=== PATIENT | female | born 1975 | race Caucasian/White ===

== ENCOUNTER → 2016-09-08 | Outpatient (CLI) | payer BC ==
--- NOTE | 2016-09-08 15:49 | XR ---
EXAMINATION TYPE: XR chest 2V DATE OF EXAM: 09/08/2016 3:44 PM COMPARISON: NONE TECHNIQUE: PA and lateral views submitted. HISTORY: Chest pain FINDINGS: The lungs are clear and there is no pneumothorax, pleural effusion, or focal pneumonia. Calcificati on along the right humerus suspicious for calcific tendinosis hypertrophic change of the spine noted. IMPRESSION: 1. No acute process.
== END | disposition home or self-care (01) ==
LOC: RADXRMAIN 15:26
PROVIDERS: ATTEND Family Medicine
DX: R07.89 Other chest pain (principal)
CPT/HCPCS: 71020

== ENCOUNTER → 2016-09-10 | Outpatient (CLI) | payer BC ==
--- NOTE | 2016-09-13 09:25 | MM ---
Reason for exam: screening (asymptomatic). Last mammogram was performed 1 year and 8 months ago. History: Family history of breast cancer in mother at age 38. Physical Findings: A clinical breast exam by your physician is recommended on an annual basis and results should be correlated with mammographic findings. MG Screening Mammo w CAD Bilateral CC and MLO view(s) were taken. Prior study comparison: January 08, 2015, bilateral MG screening mammo w CAD. October 03, 2012, CAD bilateral diagnostic mammogram. The breast tissue is heterogeneously dense. This may lower the sensitivity of mammography. Finding: There are typically benign round calcifications in the left breast. There is no discrete abnormality. ASSESSMENT: Benign, BI-RAD 2 RECOMMENDATION: Routine screening mammogram of both breasts in 1 year.
== END | disposition home or self-care (01) ==
LOC: RADMAMWWP 12:40
PROVIDERS: ATTEND Family Medicine
DX: Z12.31 Encounter for screening mammogram for malignant neoplasm of breast (principal)

== ENCOUNTER → 2016-11-15 | Outpatient (CLI) | payer BC ==
--- NOTE | 2016-11-15 18:38 | CT ---
EXAMINATION TYPE: CT angio chest DATE OF EXAM: 11/15/2016 4:51 PM COMPARISON: NONE HISTORY: CHEST PAIN AND SOB X5 MONTHS. CT DLP: 532 mGycm Automated exposure control for dose reduction was used. CONTRAST: CTA scan of the thorax is performed with IV Contrast, patient injected with 70 mL of Omnipaque 350, p ulmonary embolism protocol. There are 3-D post processed images.. FINDINGS: The lungs are clear of infiltrate. There is no pleural effusion. There is no sign of a pulmonary mass . There is no pericardial effusion. Thoracic aorta is intact. There is no sign of aneurysm or dissection. There is normal contrast opacif ication of the pulmonary arteries. I see no filling defect. The bony thorax appears intact. IMPRESSION: NORMAL CT ANGIOGRAM OF THE CHEST. NO EVIDENCE OF PULMONARY EMBOLISM.
== END | disposition home or self-care (01) ==
LOC: RADCTMAIN 16:26
PROVIDERS: ATTEND Family Medicine
DX: R06.02 Shortness of breath (principal)
CPT/HCPCS: 71275; Q9967

== ENCOUNTER → 2016-12-03 | Outpatient (CLI) | payer BC ==
--- NOTE | 2016-12-03 16:38 | EST ---
DATE OF SERVICE: 12/03/2016 AGE: 41Y SEX: F HT: 63" WT: 165 lbs. Protocol Giovanny: Other: Stage: Dur. of Exercise: 11 minutes *Heart Rate Blood Pressure *Rest: 72 Rest: 136/53 * *Max. Achieved: 154 Maximum BP: 196/64 85% PMHR: 154 100% PMHR: 181 *METS: 10.1 INDICATIONS: Chest pain. MEDICATIONS: None. Stress data: Pretesting physical examination showed heart rate 72, pressure is 136/53 mmHg. Baseline EKG shows sinus rhythm. The patient exercised on the treadmill according to Giovanny protocol for a total 11 minutes and achieved 10.1 METs. Max heart rate was 154, which is about 85% of maximum predicted heart rate. Maximum blood pressure was 196/64 mmHg. Clinically, the patient developed chest discomfort in response to exercise. The EKG showed about 1 to 2 mm of slowing, ST segment changes. CONCLUSION: 1. Chest discomfort and excellent exercise capacity. 2. The patient developed chest discomfort in response to exercise. 3. EKG changes in response to exercise but it did not meet the criteria for ischemia. 4. If the patient's symptoms are concerning I will consider a stress test with imaging modality or ( ) coronary angiogram.
== END | disposition home or self-care (01) ==
LOC: RADNMMAIN 11:02
PROVIDERS: ATTEND Family Medicine
DX: R07.89 Other chest pain (principal)
CPT/HCPCS: 93017

== ENCOUNTER → 2016-12-17 | Outpatient (CLI) | payer BC ==
--- NOTE | 2016-12-17 12:08 | NM ---
EXAMINATION TYPE: NM stress cardiolite complete DATE OF EXAM: 12/17/2016 COMPARISON: CTA chest November 15, 2016 HISTORY: Chest pain and difficulty in breathing per patient. Abnormal stress test per order TECHNIQUE: After the intravenous administration of 10.14 mCi Tc 99m Sestamibi - Rest images obtained 45 minutes post injection. The patient exercised using a GISEL protocol and 1 minute prior to peak exercise was injected with 27.0 mCi Tc 99m Sestamibi - Stress images obtained 15 minutes post inject ion. FINDINGS: Targeted heart rate was achieved during performance of the study. Review of stress and rest SPECT bijal ges demonstrates no distinct perfusion abnormality. Gated analysis shows normal wall motion with an estimated left ventricular ejection fraction of 80 %. IMPRESSION: No scintigraphic evidence for reversible ischemia
--- NOTE | 2016-12-17 12:52 | EST ---
DATE OF SERVICE: 12/17/2016 AGE: 41Y SEX: F HT: 65 WT: 165 lbs. Protocol Giovanny: Other: Stage: 3 Dur. of Exercise: 11:26 *Heart Rate Blood Pressure *Rest: 55 Rest: 95/66 * *Max. Achieved: 168 Maximum BP: 159/66 85% PMHR: 154 100% PMHR: 181 *METS: INDICATIONS: MEDICATIONS: Patient was exercised for a total period of 11 minutes and 30 seconds. The peak heart rate of 168 was achieved. Maximum blood pressure of 133/67 mm of mercury was noted. Resting EKG shows normal sinus rhythm with normal CO interval and QRS duration and normal ST-T waves. During exercise, J-point depression with upsloping ST segments are noted. The patient did not complain of any chest pain during the test. FINAL IMPRESSION: 1. This exercise test shows equivocal upsloping ST segment changes, which are not definitely diagnostic of ischemia. Patient did not complain of any chest pain during the test. 2. The results of the nuclear study will follow.
== END | disposition home or self-care (01) ==
LOC: RADNMMAIN 09:03
PROVIDERS: ATTEND Family Medicine
DX: R94.39 Abnormal result of other cardiovascular function study (principal)
CPT/HCPCS: 93017; 78452; A9500

== ENCOUNTER → 2017-03-10 | Outpatient (CLI) | payer BC ==
--- NOTE | 2017-03-10 08:35 | US ---
EXAMINATION TYPE: US thyroid st tissue head/neck DATE OF EXAM: 03/10/2017 COMPARISON: NONE CLINICAL HISTORY: R22.1 Neck Swelling. Pt states palpable lump right lateral neck just under mandible x 2 months, pt states this area is tender In area where pt feels palpable there are 2 probable lymph nodes 1)= 1.8 x 0.6 x 1.4 cm, 2)= 1.5 x 0.6 x 1.4 cm At area of palpable abnormality two oval hypoechoic to anechoic lesion are identified and marked by t echnologist. IMPRESSION: As above, if these are prominent lymph nodes they have lost normal fatty hilum suggesting ongoing inf lammation or infection. Would advise imaging follow-up (repeat ultrasound, or contrast-enhanced CT/MR I) if they persist or enlarge.
== END | disposition home or self-care (01) ==
LOC: RADUSWWP 07:40
PROVIDERS: ATTEND Family Medicine
DX: R59.0 Localized enlarged lymph nodes (principal); E07.89 Other specified disorders of thyroid
CPT/HCPCS: 76536

== ENCOUNTER → 2018-01-20 | Outpatient (CLI) | payer BC ==
--- NOTE | 2018-01-20 15:42 | US ---
EXAMINATION TYPE: US thyroid st tissue head/neck DATE OF EXAM: 01/20/2018 COMPARISON: US 03/10/2017, CT 03/21/2017 CLINICAL HISTORY: R22.1 SWELLING MASS LUMP IN NECK. Hypoechoic area visualized at the patient's palpable measuring 1.9 x 0.6 x 1.3 cm. This area previous ly measured 1.8 x 0.6 x 1.4 cm on 03/10/2017. This is ovoid in shape, normal morphologically, and on the transverse images demonstrates a small fatty hilum. Other smaller adjacent lymph nodes are seen. IMPRESSION: No interval growth in comparison to the prior exam of 03/10/2017 on the right cervical ch ain lymph node. Overall this does not meet size criteria for enlargement and appears ovoid in shape, morphologically normal. Correlation with serum laboratory values is recommended to exclude lymphoprol iferative disorder, although sonographically unlikely.
== END | disposition home or self-care (01) ==
LOC: RADUSWWP 14:47
PROVIDERS: ATTEND Otolaryngology
DX: R22.1 Localized swelling, mass and lump, neck (principal)
CPT/HCPCS: 76536

== ENCOUNTER 2018-03-24 05:35 | Day surgery (SDC) | payer BC ==
[2018-03-21 13:05] VITALS: BMI 28.3
--- NOTE | 2018-03-23 08:01 | P.HPOB ---
History of Present Illness H&P Date: 03/23/18 Chief Complaint: Menorrhagia This patient is a pleasant 42 yr female who presents for endometrial ablation due to persistent menorrhagia. Patient has had persistent heavy bleeding after going off the pill. Ultrasound shows a cystic area (2-3mm) in the endometrium, but otherwise normal. Her partner has had a vasectomy and she is requesting ablation for treatment. Review of Systems Genitourinary: Reports as per HPI, Reports menorrhagia Menstruation: Reports as per HPI, Reports period heavy Past Medical History Past Medical History: No Reported History Additional Past Medical History / Comment(s): Menorrhagia History of Any Multi-Drug Resistant Organisms: None Reported Past Surgical History: Orthopedic Surgery Additional Past Surgical History / Comment(s): Jb. Knee scopes Past Anesthesia/Blood Transfusion Reactions: No Reported Reaction Past Psychological History: No Psychological Hx Reported Smoking Status: Never smoker Past Alcohol Use History: None Reported Past Drug Use History: None Reported - Past Family History Mother Family Medical History: Cancer Additional Family Medical History / Comment(s): Breast CA Medications and Allergies Home Medications Medication Instructions Recorded Confirmed Type No Known Home Medications 03/21/18 03/21/18 History Allergies Allergy/AdvReac Type Severity Reaction Status Date / Time No Known Allergies Allergy Verified 03/21/18 12:59 Exam - OBG Physical Exam Abdomen: bowel sounds normal, no diffuse tenderness, no bruit present, no guarding noted, no hepatomegaly, no splenomegaly, no mass Vulva: both: normal Vagina: normal moisture, no discharge Cervix: no lesion, no discharge Uterus: normal size, normal contour Adnexa: both: normal Results Transvaginal ultrasound shows 2-3mm cystic area with the uterus and benign left ovarian cysts. Assessment and Plan Assessment: This is a pleasant 42 yr old female with menorrhagia requesting endometrial ablation for treatment. Plan is hysteroscopy, D&C and Novasure endometrial ablation. Patient and I have discussed this surgery and risks: infection, bleeding, possible uterine perforation and/or thermal injury. All of the patients questions are answered and a written consent obtained. (1) Menorrhagia Status: Chronic Code(s): N92.0 - EXCESSIVE AND FREQUENT MENSTRUATION WITH REGULAR CYCLE SNOMED Code(s): 795681147
[~2018-03-24 05:35] MED LIST: Pre Op ABX Message 1 EACH MISC MISCELLANE ONE
[2018-03-24] MEDS ORDERED: ONDANSETRON 4 MG/2 ML VIAL IVP ONE ×2 (05:42→09:37)
[2018-03-24] MEDS ORDERED: DEXAMETHASONE SOD PHOSPHATE 10 MG/ML 1 ML VIAL IV ONE (05:42)
[2018-03-24] MEDS ORDERED: LIDOCAINE 1% 20 ML VIAL (10MG/ML) FOR IV START INTRADERMA PRN (05:42)
[2018-03-24] MEDS ORDERED: LACTATED RINGERS 1,000 ML IV SCH (05:42)
[2018-03-24] MEDS ORDERED: MIDAZOLAM 2 MG/2 ML VIAL ONE (06:55)
[2018-03-24] MEDS ORDERED: fentaNYL (PF) 50 MCG/ML 2 ML AMP ONE (06:55)
[2018-03-24] MEDS ORDERED: KETOROLAC 30 MG/ML 1 ML VIAL ONE (06:55)
[2018-03-24] MEDS ORDERED: PROPOFOL 10 MG/ML 20 ML VIAL IV ONE (06:55)
[2018-03-24] MEDS ORDERED: LIDOCAINE 1% INJ 10MG/ML (20 ML MDV) ONE (06:55)
--- NOTE | 2018-03-24 07:31 | P.OP ---
Date of Procedure: 03/24/18 Preoperative Diagnosis: Menorrhagia Postoperative Diagnosis: Same Procedure(s) Performed: #1: Hysteroscopy. #2: Dilation and curettage. #3: NovaSure endometrial ablation Anesthesia: MAC Surgeon: Ciro Rodriges Estimated Blood Loss (ml): 10 Urine output (ml): 25 Pathology: other Condition: stable (Uterine curettings) Disposition: PACU Indications for Procedure: Please see dictated H&P for intimate details of this patient's admission. Brief summary this is a 42-year-old female with persistent menorrhagia requesting NovaSure endometrial ablation for treatment. Patient and I have discussed the surgery and risks including risks of infection, bleeding, possible uterine perforation, and/or thermal injury. All the patient's questions are answered and a written consent is obtained. Operative Findings: This patient had a normal appearing uterine cavity with some benign cystic polyps. Description of Procedure: This patient is taken to the operating room where she is laid in the supine position. She subsequently undergoes general mask anesthesia without incident. An adequate level of anesthesia she's placed in dorsal lithotomy position. Examination under anesthesia shows the uterus to be mid position slightly enlarged. Patient is a vaginal perineal prep and drape. Weighted speculum was placed in the posterior vagina and the anterior lip of cervix grabbed with an Allis clamp. Uterus is then gently sounded to approximately 9 cm. With this done the cervix is dilated more to allow the hysteroscope into the uterine cavity. Oozing saline solution, hysteroscopy is performed. Some small cystic benign polyps noted but otherwise the uterine cavity appears normal and measures to be a length of 6.5 cm. With this done the hysteroscope was removed. Cervix is dilated slightly more to allow a sharp curette easily uterine cavity and a thorough 4 quadrant curettage is then done for adequate sampling. The NovaSure device is then opened appears to be intact. Set at a length of 6.5 cm and opens up to a width of 3.5 cm. It is then seated in place and passes the cavity integrity test. Then enabled at 125 W setting for 61 seconds. This done the NovaSure device is then removed. Appears to be intact. Hysteroscopy is performed again and the uterine cavity appears to be completely ablated up to the endocervix. This done the procedure is then ended. The Allis clamp and weighted speculum removed. All counts correct 3. There are no complications. Patient is awakened from anesthesia and taken recovery room satisfactory condition.
[2018-03-24 07:33] VITALS: RESP 16; TEMP 97
[2018-03-24] MEDS ORDERED: LACTATED RINGERS 1,000 ML IV ONE (07:35)
[2018-03-24] MEDS: HYDROmorphone 0.5 MG/0.5 ML SYRINGE IVP PRN ×2 (07:56→08:03)
[2018-03-24 10:03] VITALS: BP 110/74; PULSE 70
== END 2018-03-24 10:14 | disposition home or self-care (01) ==
LOC: OR 05:35
PROVIDERS: ATTEND Obstetrics & Gynecology
DX: N92.0 Excessive and frequent menstruation with regular cycle (principal); N84.0 Polyp of corpus uteri; N83.202 Unspecified ovarian cyst, left side
CPT/HCPCS: 81025; 58563; J2250; J1100; J2405; J2001; J3010; J1885; J2704; J1170; 88305

== ENCOUNTER 2018-07-30 05:47 | Emergency (ER) | payer BC, OTHER ==
[2018-07-30 05:55] VITALS: RESP 18; TEMP 97.8
[2018-07-30 06:22] LABS: Basophils % (A) 0 %; Eosinophils # (A) 0.1 k/uL (0-0.7); Eosinophils % (A) 1 %; HCT 40.7 % (34.0-46.0); HGB 13.5 gm/dL (11.4-16.0); Lymphocytes # (A) 1.2 k/uL (1.0-4.8); Lymphocytes % (A) 14 %; MCHC 33.3 g/dL (31.0-37.0); MCV 87.1 fL (80.0-100.0); Mean Platelet Volume 6.9; Monocytes # (A) 0.3 k/uL (0-1.0); Monocytes % (A) 4 %; Neutrophils # (A) 6.5 k/uL (1.3-7.7); Neutrophils % (A) 80 %; Platelet Count 262 k/uL (150-450); RBC 4.67 m/uL (3.80-5.40); RDW 12.7 % (11.5-15.5); WBC 8.2 k/uL (3.8-10.6)
[2018-07-30 06:30] LABS: ALT 24 U/L (9-52); AST 20 U/L (14-36); Albumin 4.3 g/dL (3.5-5.0); Alkaline Phosphatase 83 U/L (38-126); Amylase 70 U/L (30-110); Anion Gap 10 mmol/L; Blood Urea Nitrogen 19 mg/dL (7-17); Carbon Dioxide 21 mmol/L (22-30); Chloride 108 mmol/L (98-107); Glucose 166 mg/dL (74-99); Lipase 112 U/L (23-300); Potassium 3.7 mmol/L (3.5-5.1); Sodium 139 mmol/L (137-145); Total Bilirubin 0.3 mg/dL (0.2-1.3)
[2018-07-30] MEDS ORDERED: ONDANSETRON 4 MG/2 ML VIAL IVP STA (07:08)
[2018-07-30] MEDS ORDERED: MORPHINE SULFATE 4 MG/ML SYRINGE IVP STA ×2 (07:08→07:47)
[2018-07-30] MEDS ORDERED: KETOROLAC 30 MG/ML 1 ML VIAL IVP STA (07:08)
[2018-07-30] MEDS ORDERED: SODIUM CHLORIDE 0.9% 2,000 ML IV ONE (07:08)
--- NOTE | 2018-07-30 07:10 | XR ---
EXAMINATION TYPE: XR KUB DATE OF EXAM: 07/30/2018 COMPARISON: NONE HISTORY: Pain TECHNIQUE: Single supine KUB image of the abdomen is obtained FINDINGS: Small bowel demonstrates no evidence for dilatation or air fluid levels. Gas and fecal material is seen in non-distended colon. No convincing evidence for pneumoperitoneum. No unusual calcifications. The lung bases are clear. The osseous structures are intact. IMPRESSION: 1. Overall nonobstructive bowel gas pattern.
--- NOTE | 2018-07-30 07:16 | ED ---
Abdominal Pain HPI - General Chief Complaint: Abdominal Pain Stated Complaint: Abdominal Pain Time Seen by Provider: 07/30/18 07:05 Source: patient, RN notes reviewed Mode of arrival: ambulatory Limitations: no limitations - History of Present Illness Initial Comments: 42 patient states that she feels like she has to urinate but cannot urinate. Patient states that she is dry heaving at this time.-year-old female sent emergency Department with chief complaint of right-sided abdominal pain. Patient states is a sudden onset around 3:00 this morning. Patient had continuous nausea and vomiting. Patient states she's never had pain like this in the past. Patient denies fever, chills. She states the pain radiates to her right flank. Patient has no history kidney stones denies any abdominal surgeries denies any chance . - Related Data Previous Rx's Medication Instructions Recorded Ibuprofen [Motrin] 600 mg PO Q6HR PRN #40 tab 03/24/18 Hydrocodone/Acetaminophen [[place] 1 tab PO Q6HR PRN #12 tab 07/30/18 5-325] Ketorolac [Toradol] 10 mg PO Q8HR #15 tab 07/30/18 Ondansetron Odt [Zofran Odt] 4 mg PO Q8HR PRN #14 tab 07/30/18 Tamsulosin [Flomax] 0.4 mg PO DAILY #7 cap 07/30/18 Allergies Allergy/AdvReac Type Severity Reaction Status Date / Time No Known Allergies Allergy Verified 07/30/18 05:55 Review of Systems ROS Statement: Those systems with pertinent positive or pertinent negative responses have been documented in the HPI. ROS Other: All systems not noted in ROS Statement are negative. Past Medical History Past Medical History: No Reported History Additional Past Medical History / Comment(s): Menorrhagia History of Any Multi-Drug Resistant Organisms: None Reported Past Surgical History: Orthopedic Surgery Additional Past Surgical History / Comment(s): Jb. Knee scopes Past Anesthesia/Blood Transfusion Reactions: No Reported Reaction Past Psychological History: No Psychological Hx Reported Smoking Status: Never smoker Past Alcohol Use History: None Reported Past Drug Use History: None Reported - Past Family History Mother Family Medical History: Cancer Additional Family Medical History / Comment(s): Breast CA General Exam Limitations: no limitations General appearance: alert, in no apparent distress Head exam: Present: atraumatic, normocephalic, normal inspection Respiratory exam: Present: normal lung sounds bilaterally. Absent: respiratory distress, wheezes, rales, rhonchi, stridor Cardiovascular Exam: Present: regular rate, normal rhythm, normal heart sounds. Absent: systolic murmur, diastolic murmur, rubs, gallop, clicks GI/Abdominal exam: Present: soft, tenderness ([id number]-[id number] right-sided abdominal tenderness), normal bowel sounds. Absent: distended, guarding, rebound, rigid Back exam: Present: CVA tenderness (R). Absent: CVA tenderness (L) Skin exam: Present: warm, dry, intact, normal color. Absent: rash Course Vital Signs 07/30/18 05:53 Temperature 97.8 F Pulse Rate 77 Respiratory 18 Rate Blood Pressure 130/87 O2 Sat by Pulse 99 Oximetry Medical Decision Making - Medical Decision Making 42-year-old female presented for right sided abdominal and flank pain. Patient has evidence of hydroureter, hydronephrosis with 3 mm stone in the right UVJ. Patient did have lab work and urinalysis no evidence of infection. Patient does have an elevated lactic acid related to dehydration nausea vomiting. Patient's pain is improved she is hydrated with 2 L of fluid we discharged with pain medication, antiemetics. - Lab Data Result diagrams: 07/30/18 06:08 07/30/18 06:08 Lab Results 07/30/18 07/30/18 07/30/18 Range/Units 06:08 06:08 06:08 WBC 8.2 (3.8-10.6) k/uL RBC 4.67 (3.80-5.40) m/uL Hgb 13.5 (11.4-16.0) gm/dL Hct 40.7 (34.0-46.0) % MCV 87.1 (80.0-100.0) fL MCH 29.0 (25.0-35.0) pg MCHC 33.3 (31.0-37.0) g/dL RDW 12.7 (11.5-15.5) % Plt Count 262 (150-450) k/uL Neutrophils % 80 % Lymphocytes % 14 % Monocytes % 4 % Eosinophils % 1 % Basophils % 0 % Neutrophils # 6.5 (1.3-7.7) k/uL Lymphocytes # 1.2 (1.0-4.8) k/uL Monocytes # 0.3 (0-1.0) k/uL Eosinophils # 0.1 (0-0.7) k/uL Basophils # 0.0 (0-0.2) k/uL Sodium 139 (137-145) mmol/L Potassium 3.7 (3.5-5.1) mmol/L Chloride 108 H (98-107) mmol/L Carbon Dioxide 21 L (22-30) mmol/L Anion Gap 10 mmol/L BUN 19 H (7-17) mg/dL Creatinine 0.85 (0.52-1.04) mg/dL Est GFR (CKD-EPI)AfAm >90 (>60 ml/min/1.73 sqM) Est GFR (CKD-EPI)NonAf 86 (>60 ml/min/1.73 sqM) Glucose 166 H (74-99) mg/dL Plasma Lactic Acid Marv 3.5 H* (0.7-2.0) mmol/L Calcium 9.0 (8.4-10.2) mg/dL Total Bilirubin 0.3 (0.2-1.3) mg/dL AST 20 (14-36) U/L ALT 24 (9-52) U/L Alkaline Phosphatase 83 (38-126) U/L Total Protein 7.0 (6.3-8.2) g/dL Albumin 4.3 (3.5-5.0) g/dL Amylase 70 (30-110) U/L Lipase 112 (23-300) U/L Urine Color Urine Appearance (Clear) Urine pH (5.0-8.0) Ur Specific [place] (1.001-1.035) Urine Protein (Negative) Urine Glucose (UA) (Negative) Urine Ketones (Negative) Urine Blood (Negative) Urine Nitrite (Negative) Urine Bilirubin (Negative) Urine Urobilinogen (<2.0) mg/dL Ur Leukocyte Esterase (Negative) Urine RBC (0-5) /hpf Urine WBC (0-5) /hpf Ur Squamous Epith Cells (0-4) /hpf Urine Bacteria (None) /hpf Urine Mucus (None) /hpf Urine HCG, Qual (Not Detectd) 07/30/18 07/30/18 Range/Units 07:20 07:20 WBC (3.8-10.6) k/uL RBC (3.80-5.40) m/uL Hgb (11.4-16.0) gm/dL Hct (34.0-46.0) % MCV (80.0-100.0) fL MCH (25.0-35.0) pg MCHC (31.0-37.0) g/dL RDW (11.5-15.5) % Plt Count (150-450) k/uL Neutrophils % % Lymphocytes % % Monocytes % % Eosinophils % % Basophils % % Neutrophils # (1.3-7.7) k/uL Lymphocytes # (1.0-4.8) k/uL Monocytes # (0-1.0) k/uL Eosinophils # (0-0.7) k/uL Basophils # (0-0.2) k/uL Sodium (137-145) mmol/L Potassium (3.5-5.1) mmol/L Chloride (98-107) mmol/L Carbon Dioxide (22-30) mmol/L Anion Gap mmol/L BUN (7-17) mg/dL Creatinine (0.52-1.04) mg/dL Est GFR (CKD-EPI)AfAm (>60 ml/min/1.73 sqM) Est GFR (CKD-EPI)NonAf (>60 ml/min/1.73 sqM) Glucose (74-99) mg/dL Plasma Lactic Acid Marv (0.7-2.0) mmol/L Calcium (8.4-10.2) mg/dL Total Bilirubin (0.2-1.3) mg/dL AST (14-36) U/L ALT (9-52) U/L Alkaline Phosphatase (38-126) U/L Total Protein (6.3-8.2) g/dL Albumin (3.5-5.0) g/dL Amylase (30-110) U/L Lipase (23-300) U/L Urine Color Light Red Urine Appearance Turbid H (Clear) Urine pH 6.0 (5.0-8.0) Ur Specific [place] 1.033 (1.001-1.035) Urine Protein 2+ H (Negative) Urine Glucose (UA) Trace H (Negative) Urine Ketones Trace H (Negative) Urine Blood Large H (Negative) Urine Nitrite Negative (Negative) Urine Bilirubin Negative (Negative) Urine Urobilinogen <2.0 (<2.0) mg/dL Ur Leukocyte Esterase Moderate H (Negative) Urine RBC >182 H (0-5) /hpf Urine WBC 25 H (0-5) /hpf Ur Squamous Epith Cells 26 H (0-4) /hpf Urine Bacteria Rare H (None) /hpf Urine Mucus Many H (None) /hpf Urine HCG, Qual Not Detected (Not Detectd) Disposition Clinical Impression: Ureteral calculi, Dehydration Disposition: HOME SELF-CARE Condition: Stable Instructions (If sedation given, give patient instructions): Kidney Stones (ED) Additional Instructions: Please return to the Emergency Department if symptoms worsen or any other concerns. Prescriptions: Hydrocodone/Acetaminophen [[place] 5-325] 1 tab PO Q6HR PRN #12 tab PRN Reason: Pain Ketorolac [Toradol] 10 mg PO Q8HR #15 tab Ondansetron Odt [Zofran Odt] 4 mg PO Q8HR PRN #14 tab PRN Reason: Nausea Tamsulosin [Flomax] 0.4 mg PO DAILY #7 cap Is patient prescribed a controlled substance at d/c from ED?: Yes When asked, does pt state using other controlled substances?: No If prescribed controlled substance>3 days was MAPS reviewed?: Prescribed <3 Days If opioid is for acute pain is fill amount 7 days or less?: Yes If Rx opioid, was Start Talking consent form obtained?: Yes Referrals: Claudette Brown MD [Primary Care Provider] - 1-2 days Jacob Vila MD [STAFF PHYSICIAN] - 1-2 days Time of Disposition: 08:13
[2018-07-30 07:42] LABS: Appearance,Urine Turbid (Clear); Bacteria,Urine Rare /hpf; Bilirubin,Urine Negative (Negative); Blood,Urine Large (Negative); Color,Urine Light Red; Glucose,Urine (UA) Trace (Negative); Ketones,Urine Trace (Negative); Leukocyte Esterase,Urine Moderate (Negative); Mucus,Urine Many /hpf; Nitrite,Urine Negative (Negative); Protein,Urine 2+ (Negative); RBC,Urine >182 /hpf (0-5); Specific Gravity,Urine 1.033 (1.001-1.035); Squamous Epithelial Cell,Urine 26 /hpf (0-4); Urobilinogen,Urine <2.0 mg/dL (<2.0); WBC,Urine 25 /hpf (0-5)
--- NOTE | 2018-07-30 08:04 | CT ---
EXAMINATION TYPE: CT abdomen pelvis w con DATE OF EXAM: 07/30/2018 COMPARISON: None HISTORY: RLQ pain CT DLP: 641.8 mGycm CONTRAST: CT scan of the abdomen and pelvis is performed without Oral Contrast and with IV Contrast, patient in jected with 100 mL of Isovue 300. FINDINGS: LUNG BASES-: No visible nodule. No infiltrate. LIVER/GB: No calcified gallstones. No space occupying hepatic lesion. Biliary tree is of normal ca liber. PANCREAS: No inflammation. No distinct mass. SPLEEN: No splenic enlargement. No lesion seen. ADRENALS: No nodule. No thickening. KIDNEYS/BLADDER: 3 mm calculus right UVJ resulting in mild right-sided hydroureteronephrosis. No dist inct renal mass. Urinary bladder grossly unremarkable. BOWEL: Normal appendix. Normal bowel caliber. No inflammation. GENITAL ORGANS: No gross abnormality. LYMPH NODES: No greater than 1cm abdominal or pelvic lymph nodes are appreciated. AORTA: No significant abnormality. OSSEOUS STRUCTURES: No significant abnormality is seen. OTHER: No significant additional abnormality is seen. IMPRESSION: 1. 3 mm calculus right UVJ resulting in mild right-sided hydroureteronephrosis.
[2018-07-30 08:27] VITALS: BP 112/54; PULSE 99
== END 2018-07-30 09:00 | disposition home or self-care (01) ==
LOC: EC 05:47
DX: N13.2 Hydronephrosis with renal and ureteral calculous obstruction (principal); E86.0 Dehydration
CPT/HCPCS: 36415; 80053; 82150; 83605; 83690; 85025; 81001; 81025; 74018; 74177; 99284; 96374; 96375 ×2; 96376; 96361 ×2; J2270; J2405; J1885; Q9967

== ENCOUNTER → 2018-08-16 | Outpatient (CLI) | payer OTHER ==
--- NOTE | 2018-08-16 16:19 | US ---
EXAMINATION TYPE: US kidneys/renal and bladder DATE OF EXAM: 08/16/2018 COMPARISON: NONE CLINICAL HISTORY: N13.30 RT hydronephrosis. History of kidney stones and right hydronephrosis EXAM MEASUREMENTS: Right Kidney: 10.9 x 5.0 x 4.5cm Left Kidney: 11.0 x 5.3 x 4.3cm Right Kidney: dilated collecting system Left Kidney: no evidence of hydronephrosis Bladder: small amount of debris noted posterior wall Bilateral Jets seen: yes IMPRESSION: 1. There may be some mild debris within the urinary bladder. 2. Mild prominence of the right extrarenal pelvis. Hydronephrosis is not identified.
== END | disposition home or self-care (01) ==
LOC: RADUSWWP 15:15
PROVIDERS: ATTEND Urology
DX: Z09 Encounter for follow-up examination after completed treatment for conditions other than malignant neoplasm (principal); R93.49 Abnormal radiologic findings on diagnostic imaging of other urinary organs; Z87.448 Personal history of other diseases of urinary system
CPT/HCPCS: 76770

== ENCOUNTER → 2018-10-19 | Outpatient (CLI) | payer OTHER ==
--- NOTE | 2018-10-23 07:53 | MM ---
Reason for exam: screening (asymptomatic). Last mammogram was performed 2 years and 1 month ago. History: Family history of breast cancer in mother at age 38. Physical Findings: A clinical breast exam by your physician is recommended on an annual basis and results should be correlated with mammographic findings. MG Screening Mammo w CAD Bilateral CC and MLO view(s) were taken. Prior study comparison: September 10, 2016, bilateral MG screening mammo w CAD. January 08, 2015, bilateral MG screening mammo w CAD. The breast tissue is extremely dense which could obscure a lesion on mammography. No significant changes when compared with prior studies. ASSESSMENT: Benign, BI-RAD 2 RECOMMENDATION: Routine screening mammogram of both breasts in 1 year.
== END | disposition home or self-care (01) ==
LOC: RADMAMWWP 16:14
PROVIDERS: ATTEND Obstetrics & Gynecology
DX: Z12.31 Encounter for screening mammogram for malignant neoplasm of breast (principal); Z80.3 Family history of malignant neoplasm of breast
CPT/HCPCS: 77067